=== PATIENT | male | born 1975 | race Asian ===

== ENCOUNTER → 2023-04-06 15:53 | Outpatient (REF) | payer BC, SELFPAY | LOC: HWRAD 15:53 | PROVIDERS: ATTENDING PHYSICIAN Family Medicine | DX: R51.9 Headache, unspecified (principal) | CPT/HCPCS: 70450 ==

== ENCOUNTER → 2024-03-19 09:17 | Outpatient (REF) | payer BC, SELFPAY | LOC: HWRAD 09:17 | PROVIDERS: ATTENDING PHYSICIAN Family Medicine | DX: R10.816 Epigastric abdominal tenderness (principal) | CPT/HCPCS: 76700 ==